=== PATIENT | female | born 1970 | race Caucasian/White ===

== ENCOUNTER 2017-12-10 18:24 | Emergency (ER) | payer OTHER ==
[~2017-12-10] VITALS: Ht 165.1 cm; Wt 113.4 kg
[2017-12-10] MEDS ORDERED: LEVSOD50 PO (19:07)
[2017-12-10] MEDS ORDERED: Robaxin500 MG PO (20:15)
== END 2017-12-10 20:24 | disposition home or self-care (01) ==
LOC: ER 18:24
DX: S16.1XXA Strain of muscle, fascia and tendon at neck level, initial encounter (principal); Z79.899 Other long term (current) drug therapy; Z87.891 Personal history of nicotine dependence; X58.XXXA Exposure to other specified factors, initial encounter
CPT/HCPCS: 99282

== ENCOUNTER 2019-05-24 10:21 | Emergency (ER) | payer OTHER ==
[~2019-05-24] VITALS: Ht 165.1 cm; Wt 113.4 kg
[~2019-05-24 10:21] MED LIST: LEVSOD50 PO; Robaxin500 MG PO
[2019-05-24] MEDS ORDERED: IBUP800 PO (11:13)
== END 2019-05-24 11:24 | disposition home or self-care (01) ==
LOC: ER 10:21
DX: M75.21 Bicipital tendinitis, right shoulder (principal); Z79.899 Other long term (current) drug therapy; Z87.891 Personal history of nicotine dependence
CPT/HCPCS: 99283

== ENCOUNTER → 2021-05-11 | Outpatient (CLI) | payer OTHER ==
[~2021-05-11] MED LIST changes: +IBUP800 PO; +ONDA4ODT MM
== END | disposition home or self-care (01) ==
LOC: LAB SHORT 12:00
DX: R07.0 Pain in throat (principal)
CPT/HCPCS: 87081

== ENCOUNTER 2021-05-14 10:59 | Emergency (ER) | payer OTHER ==
[~2021-05-14] VITALS: Ht 165.1 cm; Wt 117.9 kg
[~2021-05-14 10:59] MED LIST changes: -ONDA4ODT MM
[2021-05-14] MEDS ORDERED: ONDA4ODT MM (11:20)
== END 2021-05-14 11:22 | disposition home or self-care (01) ==
LOC: ER 10:59
DX: U07.1 COVID-19 (principal); Z79.899 Other long term (current) drug therapy; Z87.891 Personal history of nicotine dependence
CPT/HCPCS: 99285

== ENCOUNTER → 2021-10-26 | Outpatient (CLI) | payer OTHER ==
[~2021-10-26] MED LIST changes: +ONDA4ODT MM
[2021-10-26 18:14] LABS: Free Thyroxine 0.92 ng/dL (0.70-1.60)
[2021-10-26 18:18] LABS: Thyroid Stimulating Hormone 3.72 uIU/mL (0.360-4.800)
== END | disposition home or self-care (01) ==
LOC: LAB SHORT 12:29 → LAB 12:29
PROVIDERS: Family Medicine
DX: L65.9 Nonscarring hair loss, unspecified (principal)
CPT/HCPCS: 84439; 84443